=== PATIENT | male | born 1950 | race African-American/Black ===

== ENCOUNTER 2016-07-01 17:04 | Emergency (ER) | payer OTHER ==
[2016-07-01 18:11] LABS: #Basophils 0.1 thou/uL (0.0-0.2); #Eosinphils 0.3 thou/uL (0.0-0.7); #Lymphocytes 1.7 thou/uL (1.20-3.40); #Monocytes 0.7 thou/uL (0.11-0.59); #Neutrophils 5.5 thou/uL (1.40-6.50); %Basophils 1.2 % (0.0-1.0); %Eosinophils 3.8 % (0.0-10.0); %Lymphocytes 20.7 % (21.0-51.0); %Monocytes 8.8 % (0.0-10.0); Hematocrit 39.5 % (42.0-52.0); Mean Platelet Volume 6.9 fL (7.4-10.4); Red Blood Cell (RBC) Count 4.36 mill/uL (4.70-6.10); White Blood Cell (WBC) Count 8.4 thou/uL (4.8-10.8)
[2016-07-01 18:37] LABS: ALT (SGPT) 15 U/L (0-55); AST (SGOT) 12 U/L (5-34); Alkaline Phosphatase 133 U/L (40-150); Anion Gap 16 mmol/L (10-20); BUN (Urea Nitrogen) 9 mg/dL (8.4-25.7); Bilirubin, Total 0.3 mg/dL (0.2-1.2); Calc. Creatinine Clearance 0 mL/min (70-130); Calcium 8.9 mg/dL (7.8-10.44); Carbon Dioxide 23 mmol/L (23-31); Chloride 107 mmol/L (98-107); Estimated GFR-MDRD Greater than 90; Globulin 3.6 g/dL (2.4-3.5); Protein, Total 7.4 g/dL (5.8-8.1)
[2016-07-01] MEDS ORDERED: cefTRIAXone\\ROCEPHIN 1 GM VIAL ONE (21:24)
[2016-07-01] MEDS ORDERED: Sodium Chloride 0.9% 100 ML ONE ×2 (21:24)
--- NOTE | 2016-07-01 21:38 | ERRECORD ---
[facility] EMERGENCY RECORD ADMIN (17:19 [facility]) MERGE: Ambulance Wed Jul 01, 2016 17:04. HPI ABSCESS (21:49 JL) CHIEF COMPLAINT: Patient presents for evaluation of swelling, Patient presents for evaluation of pain, Patient presents for evaluation of drainage from wound, Patient presents for evaluation of Pt with sore on left cheek x1 week. Treated with Bactrim but worsening and extending up left cheek to left lower eyelid. Open today and draining. HISTORIAN: History provided by patient, History provided by patient's family, Additional history obtained from custodial. LOCATION: Symptoms are localized. TIME COURSE: Gradual onset of symptoms, Symptoms are worsening. ASSOCIATED WITH: No associated chills, Associated with drainage, No associated fever, Associated with proximal streaking, Associated with warmth. COMPLICATING FACTORS: Complicating factors for wound healing include:, patient with history of diabetes. EXACERBATED BY: Patient's condition exacerbated by nothing. RELIEVED BY: Patient's condition relieved by nothing. ROS (21:50 JL) CONSTITUTIONAL: Historian denies chills, denies fever. ENT: Historian denies rhinorrhea, denies sore throat. RESPIRATORY: Historian denies cough, denies shortness of breath. GI: Historian denies abdominal pain, denies nausea, denies vomiting. SKIN: Historian reports cellulitis, reports induration, reports rash. NEUROLOGIC: Historian denies headache. PAST MEDICAL HISTORY MEDICAL HISTORY: Notes: Hemiplegia, glaucoma, GERD, COPD,, Flu vaccine up to date, Tetanus immunization up to date, Pneumococcal vaccine up to date, Past medical history includes history of diabetes, Type II, Past medical history includes history of hyperlipidemia, Past medical history includes history of hypertension. 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 TRACH PLACED IN 2005. (17:14 IHAC) PSYCHIATRIC HISTORY: Notes: dementia, psychosis. (17:14 IHAC) SOCIAL HISTORY: Patient denies alcohol use, Patient has no smoking history, Patient denies alcohol use, Patient denies drug use, Patient has no smoking history. (17:14 IHAC) NOTES: Nursing records reviewed, Agree with nursing records. (21:53 JL) &a-1R&a+25V*p+0X*n7917H*c202B*c15G*c2P*p-0X&a-25V&a+1R Name: Berny Reynolds : 1950 M65 MedRec: [id number] AcctNum: [id number] Prepared: WedJul 01, 2016 22:34 by Interface Page 1 of 4 pMD [facility] EMERGENCY RECORD KNOWN ALLERGIES No Known Drug Allergies CURRENT MEDICATIONS Aspirin Low Dose: TABLET, DELAYED RELEASE (ENTERIC COATED) : Strength - 81 mg : ORAL Patient Dose: once a day. (17:14 BDON) Depakote: TABLET, DELAYED RELEASE (ENTERIC COATED) : Strength - 500 mg : ORAL Patient Dose: 1 1/2 tab(s) once a day.crush medications. (17:16 BDON) Dilantin Extended: CAPSULE : Strength - 100 mg : ORAL Patient Dose: 2 tab(s) once a day. (17:17 BDON) Lipitor: TABLET : Strength - 40 mg : ORAL Patient Dose: once a day. (17:17 BDON) multivitamin: TABLET : ORAL Patient Dose: once a day.crush. (17:18 BDON) Travatan Z: DROPS : Strength - 0.004 % : OPHTHALMIC Patient Dose: once a day (at bedtime). (17:20 BDON) Fleet Enema: ENEMA (ML) : Strength - 19 gram-7 gram/118 mL : RECTAL Patient Dose: once a day.as needed. (17:21 BDON) Bactrim DS: TABLET : Strength - 800 mg-160 mg : ORAL Patient Dose: 2 times a day.for 7 days. (17:21 BDON) Milk of Magnesia: SUSPENSION, ORAL (FINAL DOSE FORM) : Strength - 400 mg/5 mL : ORAL Patient Dose: once a day.as needed. (17:22 BDON) acetaminophen: TABLET : Strength - 325 mg : ORAL Patient Dose: 2 times a day.crushed as needed. (17:23 BDON) traMADol: TABLET : Strength - 50 mg : ORAL Patient Dose: 2 times a day.as needed. (17:23 BDON) Antacid: SUSPENSION, ORAL (FINAL DOSE FORM) : Strength - 200 mg-200 mg-20 mg/5 mL : ORAL Patient Dose: every 4 hours prn. (17:24 BDON) Benadryl: CAPSULE : Strength - 25 mg : ORAL Patient Dose: every 6 hours PRN. (17:27 BDON) HumuLIN R: CARTRIDGE (ML) : Strength - 100 unit/mL : INJECTION Patient Dose: Unknown.sliding scale. (17:29 BDON) Nitrostat: &a-1R&a+25V*p+0X*n7289T*c202B*c15G*c2P*p-0X&a-25V&a+1R Name: Berny Reynolds : 1950 M65 MedRec: [id number] AcctNum: [id number] Prepared: WedJul 01, 2016 22:34 by Interface Page 2 of 4 pMD [facility] EMERGENCY RECORD TABLET, SUBLINGUAL : Strength - 0.4 mg : SUBLINGUAL Patient Dose: Unknown. (17:30 BDON) Saline Nasal: AEROSOL, SPRAY (ML) : Strength - 0.65 % : NASAL Patient Dose: Unknown. (17:31 BDON) VITAL SIGNS VITAL SIGNS: BP: 147/87, Pulse: 85, Resp: 22, Temp: 99.3 (Oral), O2 sat: 96 on Room Air, Time: 07/01/2016 17:05. (17:05 IHAC) BP: 163/77, Pulse: 84, Resp: 20, Temp: 98.1 (Oral), O2 sat: 95 on Room Air, Time: 07/01/2016 21:15. (21:15 MBOS) PHYSICAL EXAM (21:51 JLOY) CONSTITUTIONAL: Vital signs reviewed, Patient appears non toxic. EYES: Eye exam included findings of, left eyelid edematous, Pupils equally round and reactive to light, Extraocular muscles intact, Conjunctiva normal. ENT: Pharynx exam normal, Uvula exam normal, Tonsil exam normal, Mouth exam normal, mucous membranes moist. NECK: Neck exam included findings of normal range of motion, Trachea midline, trach intact. RESPIRATORY CHEST: Respiratory exam included findings of no respiratory distress, Breath sounds clear, No wheezing, No rales, No rhonchi, Chest exam included findings of chest movement symmetrical. CARDIOVASCULAR: Cardiovascular exam included findings of heart rate regular rate and rhythm, Heart sounds normal. NEURO: [place] coma scale 15, Neuro exam findings include patient oriented to person, place and time, Speech normal. SKIN: Skin exam included findings of skin warm, dry, and normal in color, left face with open wound just over left nasolabial fold. TTP, base purulent, no active drainage. Edges red and swollen. Redeness and induration tracking up left cheek to lateral nose and left lower lid. MEDICATION ADMINISTRATION SUMMARY Drug Name: *vancomycin intravenous, Dose Ordered: 1 g, Route: IV Piggy Back, Status: Given, Time: 22:05 07/01/2016, Drug Name: cefTRIAXone injection, Dose Ordered: 1 g, Route: IV Piggy Back, Status: Given, Time: 21:30 07/01/2016, *Additional information available in notes, Detailed record available in Medication Service section. DOCTOR NOTES (21:48 [facility]) TEXT: Dr. Pruitt accepted the transfer to [facility]. PROBLEM LIST No recorded problems DIAGNOSIS (21:09 [facility]) &a-1R&a+25V*p+0X*w2427R*c202B*c15G*c2P*p-0X&a-25V&a+1R Name: Berny Reynolds : 1950 5 MedRec: [id number] AcctNum: [id number] Prepared: WedJul 01, 2016 22:34 by Interface Page 3 of 4 pMD [facility] EMERGENCY RECORD FINAL: PRIMARY: CELLULITIS UNSPECIFIED. PRESCRIPTION No recorded prescriptions DISPOSITION PATIENT: Disposition Type: Admit, Disposition: [facility]. (21:09 [facility]) Disposition Type: Transfer, Disposition: [facility]. (21:49 [facility]) Patient left the department. (22:28 [place]) Wyatt: RAMY=CALLI Shanks, Jane MENDEZ=Catina SolanoOY=MD Juan, Micheal PITTS=CALLI Nugent, Rudy WHITAKER=CALLI Sebastian, Cherry &a-1R&a+25V*p+0X*s7940H*c202B*c15G*c2P*p-0X&a-25V&a+1R Name: Berny Reynolds : 1950 M65 MedRec: [id number] AcctNum: [id number] Prepared: Wed Jul 01, 2016 22:34 by Interface Page 4 of 4 pMD MTDD
--- NOTE | 2016-07-01 21:42 | PICIS ---
[facility] EMERGENCY RECORD ADMIN MERGE: Ambulance WedJul 01, 2016 17:04. (17:19 IHAC) TRIAGE (WedJul 01, 2016 17:07 IHAC) PATIENT: NAME: Berny Reynolds, AGE: 65, GENDER: male, : [facility] 1950, TIME OF GREET: WedJul 01, 2016 17:04, PREFERRED LANGUAGE: Hungarian, ETHNICITY: Not or , ECODE BILLING MAP: [facility], SSN: [id number], Zip Code: [id number], KG WEIGHT: [phone], PHONE: , , , PERSON ID: [id number]. (WedJul 01, 2016 17:07 IHAC) COMPLAINT: FACIAL SWELLING. (WedJul 01, 2016 17:07 IHAC) ADMISSION: URGENCY: 3 Urgent, ADMISSION SOURCE: Retirement, TRANSPORT: AMBULANCE - [facility], BED: TRIAGE. (WedJul 01, 2016 17:07 IHAC) ASSESSMENT: Assessment: LEFT FACIAL ABCESS, Symptoms began X3 DAYS. (17:14 IHAC) IMMUNIZATIONS: Flu vaccine up to date. (17:14 IHAC) SIRS SCORING: Heart Rate 55-109 (0), Temp range 96.8-101.1 (0), respiratory rate 12-24 (0), Yes, Infection or Suspected Infection, FACE. (17:14 IHAC) SIRS NOTIFICATION: SPOUSE AT BEDSIDE. (17:14 IHAC) PROVIDERS: TRIAGE NURSE: Catina Solano. (WedJul 01, 2016 17:07 IHAC) VITAL SIGNS: BP 147/87, Pulse 85, Resp 22, Temp 99.3, (Oral), O2 Sat 96, on Room Air, Time 07/01/2016 17:05. (17:05 IHAC) KNOWN ALLERGIES No Known Drug Allergies CURRENT MEDICATIONS Aspirin Low Dose: TABLET, DELAYED RELEASE (ENTERIC COATED) : Strength - 81 mg : ORAL Patient Dose: once a day. (17:14 BDON) Depakote: TABLET, DELAYED RELEASE (ENTERIC COATED) : Strength - 500 mg : ORAL Patient Dose: 1 1/2 tab(s) once a day.crush medications. (17:16 BDON) Dilantin Extended: CAPSULE : Strength - 100 mg : ORAL Patient Dose: 2 tab(s) once a day. (17:17 BDON) Lipitor: TABLET : Strength - 40 mg : ORAL Patient Dose: once a day. (17:17 BDON) multivitamin: TABLET : ORAL Patient Dose: once a day.crush. (17:18 BDON) Travatan Z: DROPS : Strength - 0.004 % : OPHTHALMIC Patient Dose: once a day (at bedtime). (17:20 BDON) &a-1R&a+25V*p+0X*e3018Z*c202B*c15G*c2P*p-0X&a-25V&a+1R Name: Berny Reynolds : 1950 M65 MedRec: [id number] AcctNum: [id number] Prepared: WedJul 01, 2016 22:40 by Interface Page 1 of 10 pMD [facility] EMERGENCY RECORD [place] Enema: ENEMA (ML) : Strength - 19 gram-7 gram/118 mL : RECTAL Patient Dose: once a day.as needed. (17:21 BDON) Bactrim DS: TABLET : Strength - 800 mg-160 mg : ORAL Patient Dose: 2 times a day.for 7 days. (17:21 BDON) Milk of Magnesia: SUSPENSION, ORAL (FINAL DOSE FORM) : Strength - 400 mg/5 mL : ORAL Patient Dose: once a day.as needed. (17:22 BDON) acetaminophen: TABLET : Strength - 325 mg : ORAL Patient Dose: 2 times a day.crushed as needed. (17:23 BDON) traMADol: TABLET : Strength - 50 mg : ORAL Patient Dose: 2 times a day.as needed. (17:23 BDON) Antacid: SUSPENSION, ORAL (FINAL DOSE FORM) : Strength - 200 mg-200 mg-20 mg/5 mL : ORAL Patient Dose: every 4 hours prn. (17:24 BDON) Benadryl: CAPSULE : Strength - 25 mg : ORAL Patient Dose: every 6 hours PRN. (17:27 BDON) HumuLIN R: CARTRIDGE (ML) : Strength - 100 unit/mL : INJECTION Patient Dose: Unknown.sliding scale. (17:29 BDON) Nitrostat: TABLET, SUBLINGUAL : Strength - 0.4 mg : SUBLINGUAL Patient Dose: Unknown. (17:30 BDON) Saline Nasal: AEROSOL, SPRAY (ML) : Strength - 0.65 % : NASAL Patient Dose: Unknown. (17:31 BDON) VITAL SIGNS VITAL SIGNS: BP: 147/87, Pulse: 85, Resp: 22, Temp: 99.3 (Oral), O2 sat: 96 on Room Air, Time: 07/01/2016 17:05. (17:05 IHAC) BP: 163/77, Pulse: 84, Resp: 20, Temp: 98.1 (Oral), O2 sat: 95 on Room Air, Time: 07/01/2016 21:15. (21:15 MBOS) NURSING ASSESSMENT: FALL RISK (21:16 MBOS) FALL RISK: Sensory deficits (1), Impaired mobility (3), Neurologic diagnosis (3), Total score 7, Fall risk. NURSING ASSESSMENT: SKIN CONSTITUTIONAL: Complex assessment performed, Patient arrives, via [facility], History obtained from patient, Patient cooperative, Patient alert, Skin warm, Skin dry, Skin, flushed in color, Mucous membranes pink, Mucous membranes moist, Patient complains of lFACIAL ABCESS,EDEMA AND REDNESS, REDNESS AND EDEMA TO LEFT SIDE OF FACE WITH OPEN TIP &a-1R&a+25V*p+0X*d2619Z*c202B*c15G*c2P*p-0X&a-25V&a+1R Name: Berny Reynolds : 1950 M65 MedRec: [id number] AcctNum: [id number] Prepared: WedJul 01, 2016 22:40 by Interface Page 2 of 10 pMD [facility] EMERGENCY RECORD .5CM ROUND WHITE IN CNTR.. NO ACTIVE DRAINAGE NOTED OTHER THAN SCANT BLOOD. (17:21 IHAC) Oriented to person, place and time. (21:21 MBOS) PAIN: aching pain, Onset of pain X3 DAYS. (17:21 IHAC) SKIN: Skin assessment findings include skin warm, Skin dry, Skin normal in color, Inspection findings include redness, to LEFTSIDE OF FACE TO INCLUDE PERIORBITAL. DENIES ANY DIFF. VISION AT THIS TIME., Inspection findings include swelling, to LEFT SIDE OF FACE. (17:21 IHAC) Inspection findings include: No pressure ulcer to the shoulder, Inspection findings include no pressure ulcer to the elbow, Inspection findings include no pressure ulcers to the hip, Inspection findings include no pressure ulcer to the sacrum, Inspection findings include no pressure ulcer to the heel, Inspection findings include no pressure ulcer, Inspection findings include no pressure ulcer, Inspection findings include redness, to left cheek, left orbit, Inspection findings include signs of infection, to left cheek, left orbit, Inspection findings include swelling, to left cheek, left orbit. (21:21 MBOS) TUBES AND PORTS: Tracheostomy present, Size (Fr) PLACED IN 2005, Site well healed. (17:21 IHAC) SAFETY: Side rails up, Cart/Stretcher in lowest position, Family at bedside, Call light within reach, Hospital ID band on. (17:21 IHAC) Side rails up, Cart/Stretcher in lowest position, Family at bedside, Call light within reach, Hospital ID band on. (21:21 MBOS) ADVANCED DIRECTIVES (17:12 BDON) ADVANCED DIRECTIVE: DNR on chart. NURSING PROCEDURE: BEDSIDE SIRS TESTING (21:20 MBOS) SCORES: Heart Rate 55-109 (0), Temp range 96.8-101.1 (0), respiratory rate 12-24 (0), Latest WBC 3-14.9 (0), Mental Status altered: no (0). NURSING PROCEDURE: COMMUNICATIONS (17:53 BDON) COMMUNICATIONS: Notes: Dr. Das sent to ER for evaluation and R/O infection of left "beside of lip" wound. It has been there for a few days. Taking antiabiotic. [facility] called after patient arrival to ER by approximately 40 minutes. NURSING PROCEDURE: IV PATIENT IDENITIFIER: Patient actively involved in identification process. (18:39 BDON) Patient actively involved in identification process, Patient's identity verified by patient stating name, Patient's identity verified by &a-1R&a+25V*p+0X*s2303N*c202B*c15G*c2P*p-0X&a-25V&a+1R Name: Berny Reynolds : 1950 M65 MedRec: [id number] AcctNum: [id number] Prepared: WedJul 01, 2016 22:40 by Interface Page 3 of 10 [facility] EMERGENCY RECORD patient stating date, Patient's identity verified by hospital ID yvette. (19:25 MBOS) IV SITE 1: IV established, in two attempts, Unable to obtain IV access. (18:39 BDON) IV established, to the left external jugular, using an 18 gauge catheter, in six attempts, Saline lock established, Flushed with normal saline (mls): 10, Notes: started by Rudy Nugent RN. (19:25 MBOS) SAFETY: Side rails up, Cart/Stretcher in lowest position, Family at bedside, Call light within reach, Hospital ID band on. (19:25 MBOS) NURSING PROCEDURE: NURSE NOTES NURSES NOTES: Notes: UNABLE TO OBTAIN IV. ACCESS OR LAB BY THIS NURSE AND OTHER NURSE. LAB CALLED TO ASSIST WITH LAB DRAW. DILIA AT BEDSIDE. WILL REPORT TO MD. WELL. (17:55 IHAC) Notes: NOTIFIED . OF INABILITY TO ACCESS IV. REPORT ALSO GOVEN TO HARIS MCCURDY. (18:41 IHAC) Patient is improving, Patient in no apparent distress, Beverage given to patient. (20:48 MBOS) NURSING PROCEDURE: TRANSPORT TO TESTS (20:05 KHER) PATIENT IDENTIFIER: Patient actively involved in identification process. TRANSPORT TO TESTS: Transport indicated to facilitate diagnosis, Patient transported to CT scan, via cart, Accompanied by x-ray pharmacy technician infusion, Patient arrived in location at 2005, Patient departed location at 2024. FOLLOW-UP: After procedure, patient returned to emergency department. SAFETY: Side rails up, Cart/Stretcher in lowest position, Family at bedside, Call light within reach, Hospital ID band on. ORDER DETAILS Order Name: CBC with Differential, Status: Active, Time: 17:23 07/01/2016, User: HINA, - Ordered for: MD Martinez Joshua, - Entered by: MD Martinez Joshua - WedJul 01, 2016 17:23, - Quantity: 1, Order Name: Comprehensive Metabolic Panel, Status: Active, Time: 17:23 07/01/2016, User: HINA, - Ordered for: MD Martinez Joshua, - Entered by: MD Martinez Joshua - WedJul 01, 2016 17:23, - Quantity: 1, Order Name: CRP (Inflamatory), Status: Active, Time: 17:23 07/01/2016, User: HINA, - Ordered for: MD Martinez Joshua, - Entered by: MD Martinez Joshua - WedJul 01, 2016 17:23, - Quantity: 1, &a-1R&a+25V*p+0X*k9436Y*c202B*c15G*c2P*p-0X&a-25V&a+1R Name: Berny Reynolds : 1950 M65 MedRec: [id number] AcctNum: [id number] Prepared: WedJul 01, 2016 22:40 by Interface Page 4 of 10 [facility] EMERGENCY RECORD Order Name: CT Facial Bones W Con, Status: Active, Time: 19:24 07/01/2016, User: HINA, - Ordered for: MD Martinez Joshua, - Entered by: MD Martinez Joshua - WedJul 01, 2016 19:24, - Quantity: 1, Order Name: SALINE LOCK, Status: Done, Time: 19:25 07/01/2016, User: SHERMAN, - Ordered for: MD Martinez Joshua, - Entered by: MD Martinez Joshua - WedJul 01, 2016 17:23, - Quantity: 1. MEDICATION ADMINISTRATION SUMMARY Drug Name: *vancomycin intravenous, Dose Ordered: 1 g, Route: IV Piggy Back, Status: Given, Time: 22:05 07/01/2016, Drug Name: cefTRIAXone injection, Dose Ordered: 1 g, Route: IV Piggy Back, Status: Given, Time: 21:30 07/01/2016, *Additional information available in notes, Detailed record available in Medication Service section. MEDICATION SERVICE cefTRIAXone injection: Order: cefTRIAXone injection (ceftriaxone sodium) - Dose: 1 g : IV Piggy Back Ordered by: Micheal Martinez MD Entered by: Micheal Martinez MD WedJul 01, 2016 21:08 , Acknowledged by: Cherry Sebastian RN WedJul 01, 2016 21:22 Documented as given by: Cherry Sebastian RN WedJul 01, 2016 21:30 Patient, Medication, Dose, Route and Time verified prior to administration. IV SITE #1 IVPB or drip, initial infusion, IVPB mixed in: 100ml, Fluid: 0.9NS, via primary tubing, via pump tubing, on an IV pump, at 200 ml/hr, Awake and alert- acceptable, Catheter placement confirmed via flush prior to administration, IV site without signs or symptoms of infiltration during medication administration, No swelling during administration, No drainage during administration, IV flushed after administration, Correct patient, time, route, dose and medication confirmed prior to administration, Patient advised of actions and side-effects prior to administration, Allergies confirmed and medications reviewed prior to administration, Patient in position of comfort, Side rails up, Cart in lowest position, Family at bedside. : Follow Up : _IV SITE #1:_, Medication infusion discontinued, on WedJul 01, 2016 22:00, 30 minutes, ., Total amount infused: 100ml, IV Line flushed after administration, Advised not to ambulate without assistance, Patient in position of comfort, Side rails up, Cart in lowest position, Family at bedside. (22:10 MBOS) vancomycin intravenous: Order: vancomycin intravenous (vancomycin HCl) - Dose: 1 g : IV Piggy Back Notes: If not premixed, mix vial in 250mL NS or 250mL D5W. Ordered by: Micheal Martinez MD Entered by: Micheal Martinez MD WedJul 01, 2016 21:48 , &a-1R&a+25V*p+0X*e5380W*c202B*c15G*c2P*p-0X&a-25V&a+1R Name: Berny Reynolds : 1950 M65 MedRec: [id number] AcctNum: [id number] Prepared: WedJul 01, 2016 22:40 by Interface Page 5 of 10 pMD [facility] EMERGENCY RECORD Acknowledged by: Cherry Sebastian RN WedJul 01, 2016 21:53 Documented as given by: Cherry Sebastian RN WedJul 01, 2016 22:05 Patient, Medication, Dose, Route and Time verified prior to administration. IV SITE #1 IVPB or drip, subsequent infusion, IVPB mixed in: 250ml, Fluid: 0.9NS, via primary tubing, via pump tubing, on an IV pump, at 125 ml/hr, Awake and alert- acceptable, Catheter placement confirmed via flush prior to administration, IV site without signs or symptoms of infiltration during medication administration, No swelling during administration, No drainage during administration, IV flushed after administration, Correct patient, time, route, dose and medication confirmed prior to administration, Patient advised of actions and side-effects prior to administration, Allergies confirmed and medications reviewed prior to administration, Patient in position of comfort, Side rails up, Cart in lowest position, Family at bedside. : Follow Up : Response assessment performed, No signs or symptoms of allergic reaction noted, _IV SITE #1:_, Medication infusion continued upon transfer from emergency department, on WedJul 01, 2016 22:24, 20 minutes, ., Total amount infused: 25ml. (22:26 [facility]) HPI ABSCESS (21:49 [facility]) CHIEF COMPLAINT: Patient presents for evaluation of swelling, Patient presents for evaluation of pain, Patient presents for evaluation of drainage from wound, Patient presents for evaluation of Pt with sore on left cheek x1 week. Treated with Bactrim but worsening and extending up left cheek to left lower eyelid. Open today and draining. HISTORIAN: History provided by patient, History provided by patient's family, Additional history obtained from halfway. LOCATION: Symptoms are localized. TIME COURSE: Gradual onset of symptoms, Symptoms are worsening. ASSOCIATED WITH: No associated chills, Associated with drainage, No associated fever, Associated with proximal streaking, Associated with warmth. COMPLICATING FACTORS: Complicating factors for wound healing include:, patient with history of diabetes. EXACERBATED BY: Patient's condition exacerbated by nothing. RELIEVED BY: Patient's condition relieved by nothing. ROS (21:50 JL) CONSTITUTIONAL: Historian denies chills, denies fever. ENT: Historian denies rhinorrhea, denies sore throat. RESPIRATORY: Historian denies cough, denies shortness of breath. GI: Historian denies abdominal pain, denies nausea, denies vomiting. SKIN: Historian reports cellulitis, reports induration, reports rash. NEUROLOGIC: Historian denies headache. &a-1R&a+25V*p+0X*p2655X*c202B*c15G*c2P*p-0X&a-25V&a+1R Name: Berny Reynolds : 1950 M65 MedRec: [id number] AcctNum: [id number] Prepared: WedJul 01, 2016 22:40 by Interface Page 6 of 10 pMD [facility] EMERGENCY RECORD PAST MEDICAL HISTORY MEDICAL HISTORY: Notes: Hemiplegia, glaucoma, GERD, COPD,, Flu vaccine up to date, Tetanus immunization up to date, Pneumococcal vaccine up to date, Past medical history includes history of diabetes, Type II, Past medical history includes history of hyperlipidemia, Past medical history includes history of hypertension. 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 TRACH PLACED IN 2005. (17:14 IHAC) PSYCHIATRIC HISTORY: Notes: dementia, psychosis. (17:14 IHAC) SOCIAL HISTORY: Patient denies alcohol use, Patient has no smoking history, Patient denies alcohol use, Patient denies drug use, Patient has no smoking history. (17:14 IHAC) NOTES: Nursing records reviewed, Agree with nursing records. (21:53 JLOY) PHYSICAL EXAM (21:51 JLOY) CONSTITUTIONAL: Vital signs reviewed, Patient appears non toxic. EYES: Eye exam included findings of, left eyelid edematous, Pupils equally round and reactive to light, Extraocular muscles intact, Conjunctiva normal. ENT: Pharynx exam normal, Uvula exam normal, Tonsil exam normal, Mouth exam normal, mucous membranes moist. NECK: Neck exam included findings of normal range of motion, Trachea midline, trach intact. RESPIRATORY CHEST: Respiratory exam included findings of no respiratory distress, Breath sounds clear, No wheezing, No rales, No rhonchi, Chest exam included findings of chest movement symmetrical. CARDIOVASCULAR: Cardiovascular exam included findings of heart rate regular rate and rhythm, Heart sounds normal. NEURO: Rush coma scale 15, Neuro exam findings include patient oriented to person, place and time, Speech normal. SKIN: Skin exam included findings of skin warm, dry, and normal in color, left face with open wound just over left nasolabial fold. TTP, base purulent, no active drainage. Edges red and swollen. Redeness and induration tracking up left cheek to lateral nose and left lower lid. EVENTS TRANSFER: Triage to Emergency Triage. (WedJul 01, 2016 17:07 IHAC) Emergency Triage to Emergency Room -02. (17:23 JNOL) Removed from Emergency Emergency Room -02. (22:28 LEEW) DOCTOR NOTES (21:48 [facility]) TEXT: Dr. Pruitt accepted the transfer to [facility]. &a-1R&a+25V*p+0X*s9895I*c202B*c15G*c2P*p-0X&a-25V&a+1R Name: Berny Reynolds : 1950 M65 MedRec: [id number] AcctNum: [id number] Prepared: WedJul 01, 2016 22:40 by Interface Page 7 of 10 pMD [facility] EMERGENCY RECORD PROBLEM LIST No recorded problems DIAGNOSIS (21:09 [facility]) FINAL: PRIMARY: CELLULITIS UNSPECIFIED. DISPOSITION PATIENT: Disposition Type: Admit, Disposition: [facility]. (21:09 [facility]) Disposition Type: Transfer, Disposition: [facility]. (21:49 JL) Patient left the department. (22:28 LEEW) PRESCRIPTION No recorded prescriptions IMAGING DNR - ADVANCE DIRECTIVE: Image captured from scanner. (17:12 BDON) *MEMORANDUM OF TRANSFER: Image captured from scanner. (21:55 LEEW) TRANSFER CONSENT: Image captured from scanner. (21:55 LEEW) JAIL NOTES: Image captured from scanner. (21:59 LEEW) Page 2 added. Image captured from scanner. (22:00 LEEW) Page 3 added. Image captured from scanner. (22: LEEW) Page 4 added. Image captured from scanner. (22: LEEW) Page 5 added. Image captured from scanner. (22: LEEW) Page 6 added. Image captured from scanner. (22: LEEW) Page 7 added. Image captured from scanner. (22: LEEW) Page 8 added. Image captured from scanner. (22: LEEW) Page 9 added. Image captured from scanner. (22: LEEW) Page 10 added. Image captured from scanner. (22: LEEW) Page 11 added. Image captured from scanner. (22: LEEW) Page 12 added. Image captured from scanner. (22: LEEW) Page 13 added. Image captured from scanner. (22:) Page 14 added. Image captured from scanner. (22:) Page 15 added. Image captured from scanner. (22:) Page 16 added. Image captured from scanner. (22:) Page 17 added. Image captured from scanner. (22:) Page 18 added. Image captured from scanner. (22:02 ) TRANSFER RECORD FORM: Image captured from scanner. (22:02 ) *SUPPLY CHARGE SHEET: Image captured from scanner. (22:22 LEE) ADMIN DIGITAL SIGNATURE: MD Martinez Joshua. (21:09 [facility]) MD Martinez Joshua. (21:53 [facility]) CALLI Nugent Lee. (22:11 [facility]) CALLI Nugent, Rudy. (22:28 [facility]) RESULTS (19:06 [facility]) &a-1R&a+25V*p+0X*e0797H*c202B*c15G*c2P*p-0X&a-25V&a+1R Name: Berny Reynolds : 1950 M65 MedRec: [id number] AcctNum: [id number] Prepared: WedJul 01, 2016 22:40 by Interface Page 8 of 10 pMD [facility] EMERGENCY RECORD LABORATORY: Comprehensive Metabolic Panel Collection DT: WedJul 01, 2016 18:07, Sodium 142 mmol/L, Range (136-145), Potassium 4.4 mmol/L, Range (3.5-5.1), Chloride 107 mmol/L, Range (98-107), Carbon Dioxide 23 mmol/L, Range (23-31), Anion Gap 16 mmol/L, Range (10-20), BUN (Urea Nitrogen) 9 mg/dL, Range (8.4-25.7), Creatinine 0.87 mg/dL, Range (0.7-1.3), Estimated GFR-MDRD Greater than 90 , Reference Range for Estimated GFR: Greater than 90, mL/min/1.73 m2 NOTE: The MDRD equation has not been validated for use, with the elderly (over 70 years of age), women, patients with, serious comorbid condition or persons with extremes of body size, muscle, mass, or nutritional status. , *Glucose 147 - H mg/dL, Range (80-115), Calcium 8.9 mg/dL, Range (7.8-10.44), Bilirubin, Total 0.3 mg/dL, Range (0.2-1.2), Protein, Total 7.4 g/dL, Range (5.8-8.1), NOTE: Plasma values are generally 0.3 to 0.5 g/dL higher than serum values, due to the presence of fibrinogen. , Albumin 3.8 g/dL, Range (3.4-4.8), *Globulin 3.6 - H g/dL, Range (2.4-3.5), *Alb/Glob Ratio 1.1 - L g/dL, Range (1.2-2.2), Alkaline Phosphatase 133 U/L, Range (40-150), AST (SGOT) 12 U/L, Range (5-34), ALT (SGPT) 15 U/L, Range (0-55). CRP (Inflammatory) Collection DT: WedJul 01, 2016 18:07, *CRP (Inflammatory) 8.09 - H mg/dL, Range (= or < 0.5). CBC with Differential Collection DT: WedJul 01, 2016 18:07, White Blood Cell (WBC) Count 8.4 thou/uL, Range (4.8-10.8), *Red Blood Cell (RBC) Count 4.36 - L mill/uL, Range (4.70-6.10), *Hemoglobin 12.7 - L g/dL, Range (14.0-18.0), *Hematocrit 39.5 - L %, Range (42.0-52.0), Mean Corpuscular Volume 90.7 fl, Range (80.0-94.0), Mean Corpuscular Hemoglobin 29.2 pg, Range (27.0-31.0), Mean Corpuscular HGB CONC 32.2 g/dL, Range (32.0-36.0), RBC Distribution Width 11.7 %, Range (11.5-14.5), Platelet Count 255 thou/uL, Range (130-400), *Mean Platelet Volume 6.9 - L fL, Range (7.4-10.4), %Neutrophils 65.5 %, Range (42.0-75.0), *%Lymphocytes 20.7 - L %, Range (21.0-51.0), %Monocytes 8.8 %, Range (0.0-10.0), %Eosinophils 3.8 %, Range (0.0-10.0), *%Basophils 1.2 - H %, Range (0.0-1.0), #Neutrophils 5.5 thou/uL, Range (1.40-6.50), &a-1R&a+25V*p+0X*x3531P*c202B*c15G*c2P*p-0X&a-25V&a+1R Name: Berny Reynolds : 1950 M65 MedRec: [id number] AcctNum: [id number] Prepared: WedJul 01, 2016 22:40 by Interface Page 9 of 10 pMD [facility] EMERGENCY RECORD #Lymphocytes 1.7 thou/uL, Range (1.20-3.40), *#Monocytes 0.7 - H thou/uL, Range (0.11-0.59), #Eosinphils 0.3 thou/uL, Range (0.0-0.7), #Basophils 0.1 thou/uL, Range (0.0-0.2). Wyatt: RAMY=CALLI Shanks, Jane MENDEZ=Catina Solano=MD Juan, Micheal TOSCANO=CALLI Wood, Marivel NGUYEN=VINCE Denney Kayce LEEW=CALLI Nugent, Rudy WHITAKER=CALLI Sebastian, Cherry &a-1R&a+25V*p+0X*c0979C*c202B*c15G*c2P*p-0X&a-25V&a+1R Name: Berny Reynolds : 1950 M65 MedRec: [id number] AcctNum: [id number] Prepared: WedJul 01, 2016 22:40 by Interface Page 10 of 10 pMD MTDD
--- NOTE | 2016-07-01 21:44 | CT ---
CT FACE WITH CONTRAST HISTORY: Edema and redness to the left side of the face with an open tip. Evaluate for facial abs cess. COMPARISON: None. TECHNIQUE: Multiple contiguous axial images were obtained in a CT of the face with contrast. Sagi ttal and coronal reformats were performed. FINDINGS: There is left facial soft tissue swelling in the cheek and infraorbital region. There i s a small, hypodense region within the skin, without underlying abscess. This likely represents the tip seen in the area of redness. Mucus retention cysts are seen in the paranasal sinuses. M ultiple dental caries are seen. The globes and retrobulbar soft tissues are unremarkable. Encephalomacia is seen in the right tempo ral and parietal lobes. IMPRESSION Left fascial soft tissue swelling without an underlying focal abscess. POS: JESSY
[2016-07-01] MEDS ORDERED: Sodium Chloride 0.9% 250 ML 250 ML ONE (21:55)
== END 2016-07-01 22:24 | disposition short-term general hospital (02) ==
LOC: NAV ERS 17:04
DX: L03.211 Cellulitis of face (principal); I10 Essential (primary) hypertension; E11.9 Type 2 diabetes mellitus without complications; E78.5 Hyperlipidemia, unspecified; Z79.4 Long term (current) use of insulin; Z79.899 Other long term (current) drug therapy
CPT/HCPCS: 70487; 80053; 85025; 86140; 96365; 96367; J0696; J3370; J7050

== ENCOUNTER 2016-11-18 07:27 | Outpatient (CLI) | payer OTHER ==
[2016-11-18 09:36] LABS: Hemoglobin A1c 6.2 % (4.0-6.0)
[2016-11-18 09:40] LABS: ALT (SGPT) 15 U/L (8-55); AST (SGOT) 12 U/L (5-34); Albumin 3.7 g/dL (3.4-4.8); Alkaline Phosphatase 147 U/L (40-150); Bilirubin, Direct 0.2 mg/dL (0.1-0.3); Bilirubin, Total 0.3 mg/dL (0.2-1.2); Cardiac Risk 8.3 (Less than 4.5); Cholesterol 265 mg/dl (< 200 Desired); HDL Cholesterol 32 mg/dL (>60 Neg Risk); LDL Cholesterol, Calculated 206 mg/dL; Protein, Total 6.8 g/dL (5.8-8.1); Triglycerides 135 mg/dL (Less than 150)
== END 2016-11-18 07:28 | disposition home or self-care (01) ==
LOC: NAV LABSP 07:27
PROVIDERS: ATTEND Internal Medicine
DX: E11.9 Type 2 diabetes mellitus without complications (principal); R56.9 Unspecified convulsions
CPT/HCPCS: 36415; 80061; 80076; 83036

== ENCOUNTER 2016-11-25 07:10 | Outpatient (CLI) | payer OTHER ==
[2016-11-25 08:16] LABS: #Basophils 0.1 thou/uL (0.0-0.2); #Eosinphils 0.4 thou/uL (0.0-0.7); #Lymphocytes 1.9 thou/uL (1.20-3.40); #Monocytes 0.7 thou/uL (0.11-0.59); #Neutrophils 4.2 thou/uL (1.40-6.50); %Basophils 1.1 % (0.0-1.0); %Eosinophils 5.5 % (0.0-10.0); %Lymphocytes 26.4 % (21.0-51.0); %Monocytes 9.1 % (0.0-10.0); %Neutrophils 57.8 % (42.0-75.0); Hemoglobin 12.1 g/dL (14.0-18.0); Mean Corpuscular Hemoglobin 28.3 pg (27.0-31.0); Mean Corpuscular Volume 88.6 fl (80.0-94.0); Mean Platelet Volume 6.5 fL (7.4-10.4); Platelet Count 234 thou/uL (130-400); RBC Distribution Width 11.7 % (11.5-14.5); Red Blood Cell (RBC) Count 4.27 mill/uL (4.70-6.10); White Blood Cell (WBC) Count 7.2 thou/uL (4.8-10.8)
[2016-11-25 08:28] LABS: Anion Gap 13 mmol/L (10-20); BUN (Urea Nitrogen) 5 mg/dL (8.4-25.7); Calc. Creatinine Clearance 0 mL/min (70-130); Calcium 8.2 mg/dL (7.8-10.44); Carbon Dioxide 27 mmol/L (23-31); Chloride 105 mmol/L (98-107); Estimated GFR-MDRD Greater than 90; Glucose 153 mg/dL (80-115); Sodium 141 mmol/L (136-145)
== END 2016-11-25 07:11 | disposition home or self-care (01) ==
LOC: NAV LABSP 07:10
PROVIDERS: ATTEND Internal Medicine
DX: I67.9 Cerebrovascular disease, unspecified (principal); I10 Essential (primary) hypertension
CPT/HCPCS: 36415; 80048; 85025

== ENCOUNTER 2017-02-08 07:10 | Outpatient (CLI) | payer MEDICARE, OTHER ==
[2017-02-08 09:33] LABS: Hemoglobin A1c 8.2 % (4.0-6.0)
== END 2017-02-08 07:11 | disposition home or self-care (01) ==
LOC: NAV LABSP 07:10
PROVIDERS: ATTEND Internal Medicine
DX: E11.9 Type 2 diabetes mellitus without complications (principal); R56.9 Unspecified convulsions
CPT/HCPCS: 36415; 83036

== ENCOUNTER 2017-06-15 17:49 | Emergency (ER) | payer MEDICARE, MEDICAID ==
[2017-06-15] MEDS ORDERED: Sodium Chloride 0.9% 1,000 ML ONE (18:32)
[2017-06-15] MEDS ORDERED: Propofol 1,000 MG/100 ML VIAL IV ONE (18:37)
[2017-06-15 18:38] LABS: #Basophils 0.2 thou/uL (0.0-0.2); #Lymphocytes 3.1 thou/uL (1.20-3.40); #Monocytes 1.1 thou/uL (0.11-0.59); #Neutrophils 8.7 thou/uL (1.40-6.50); %Basophils 1.3 % (0.0-1.0); %Eosinophils 0.2 % (0.0-10.0); %Lymphocytes 23.7 % (21.0-51.0); %Monocytes 8.4 % (0.0-10.0); %Neutrophils 66.5 % (42.0-75.0); Hemoglobin 13.9 g/dL (14.0-18.0); Mean Corpuscular HGB CONC 33.6 g/dL (32.0-36.0); Mean Corpuscular Hemoglobin 29.4 pg (27.0-31.0); Mean Corpuscular Volume 87.6 fl (80.0-94.0); Mean Platelet Volume 8.1 fL (7.4-10.4); Platelet Count 187 thou/uL (130-400); RBC Distribution Width 11.9 % (11.5-14.5); Red Blood Cell (RBC) Count 4.72 mill/uL (4.70-6.10); White Blood Cell (WBC) Count 13.1 thou/uL (4.8-10.8)
[2017-06-15 18:53] LABS: ALT (SGPT) 21 U/L (8-55); AST (SGOT) 33 U/L (5-34); Albumin 3.9 g/dL (3.4-4.8); Alkaline Phosphatase 124 U/L (40-150); Anion Gap 24 mmol/L (10-20); BUN (Urea Nitrogen) 10 mg/dL (8.4-25.7); Bilirubin, Total 0.4 mg/dL (0.2-1.2); Calc. Creatinine Clearance 0 mL/min (70-130); Calcium 9.2 mg/dL (7.8-10.44); Carbon Dioxide 21 mmol/L (23-31); Chloride 99 mmol/L (98-107); Estimated GFR-MDRD 68; Globulin 4.1 g/dL (2.4-3.5); Glucose 387 mg/dL (80-115); Sodium 139 mmol/L (136-145)
[2017-06-15 19:00] LABS: CKMB 4.1 ng/mL (0-6.6)
[2017-06-15 19:14] LABS: Troponin I 0.448 ng/mL (< 0.028)
[2017-06-15 19:25] LABS: INR-International Normal Ratio 1.1; PTT 35.3 SEC (22.9-36.1); Prothrombin Time 14.3 SEC (12.0-14.7)
[2017-06-15 19:35] LABS: Bilirubin Negative (Negative); Blood, Urine Large (Negative); Clarity Slightly Cloudy (Clear); Glucose, Urine (Dipstick) 500 mg/dL (Negative); Leukocyte Negative (Negative); Nitrite Negative (Negative); Protein, Urine (Dipstick) > or equal to 300 mg/dL (Neg-Trace); Specific Gravity, Urine 1.025 (1.005-1.030); Urobilinogen 0.2 mg/dL (0.2-1.0); pH, Urine 5.5 (5.0-9.0)
[2017-06-15 19:46] LABS: Bacteria/HPF None Seen HPF (None Seen); Transitional Epithelial 0-3 HPF (0-3)
[2017-06-15] MEDS ORDERED: Sodium Chloride 0.9% 100 ML ONE (20:00)
[2017-06-15] MEDS ORDERED: cefTRIAXone\\ROCEPHIN 2 GM VIAL ONE (20:00)
--- NOTE | 2017-06-15 21:12 | RAD ---
PORTABLE CHEST 06/15/17 PROVIDED CLINICAL HISTORY: Dyspnea. FINDINGS: Comparison is made with the examination performed earlier same date. There has been readjustment of t he endotracheal tube, which is persistently somewhat distally located probably passed the lilo into the base of the right main bronchus. This could be retracted further. There has been improvement in aeration involving the left lung. Prominence of the pulmonary vasculature suggested. Patchy bibasilar air space disease persists. IMPRESSION: 1. ET positioning as above. 2. Bibasilar air space disease. Followup recommended. POS: [facility]
--- NOTE | 2017-06-15 21:48 | RAD ---
PORTABLE SUPINE CHEST 06/15/17 PROVIDED CLINICAL HISTORY: Dyspnea. FINDINGS: Comparison 05/21/16. There is near total opacification of the left hemithorax with shift of mediastinal contents leftwards . There is an endotracheal tube in place, the tip of which projects in the expected location of the r ight main bronchus. External defibrillator pad overlies the right hemithorax. The right hemithorax ap pears grossly clear given this limitation. Evaluation for pleural fluid and pneumothorax is limited g iven the supine nature of the study. IMPRESSION: 1. Right main stem bronchus intubation. 2. Near total opacification in the left hemithorax. 3. Findings communicated to the [facility], 6:41 p.m., 06/15/17. Code CR POS: [id number]
== END 2017-06-15 19:29 | disposition short-term general hospital (02) ==
LOC: NAV ERS 17:49
DX: J80 Acute respiratory distress syndrome (principal); Z93.0 Tracheostomy status; K21.9 Gastro-esophageal reflux disease without esophagitis; G81.90 Hemiplegia, unspecified affecting unspecified side; J44.9 Chronic obstructive pulmonary disease, unspecified; E11.39 Type 2 diabetes mellitus with other diabetic ophthalmic complication; H40.9 Unspecified glaucoma; E78.5 Hyperlipidemia, unspecified; I10 Essential (primary) hypertension; F03.90 Unspecified dementia, unspecified severity, without behavioral disturbance, psychotic disturbance, mood disturbance, and anxiety
CPT/HCPCS: 31500; 36415; 51702; 71010; 80053; 81003; 81015; 82553; 83605; 84484; 85025; 85610; 85730; 87086; 93005; 94002; 94640; 94760; 96365; 96374; 99292; J0696; J2704; J7050; J7620

== ENCOUNTER 2017-12-17 23:07 | Emergency (ER) | payer MEDICARE, OTHER | END 2017-12-17 23:57 | disposition short-term general hospital (02) | LOC: NAV ERS 23:07 | DX: Z43.0 Encounter for attention to tracheostomy (principal); K21.9 Gastro-esophageal reflux disease without esophagitis; J44.9 Chronic obstructive pulmonary disease, unspecified; E11.9 Type 2 diabetes mellitus without complications; E78.5 Hyperlipidemia, unspecified; F41.9 Anxiety disorder, unspecified; F32.9 Major depressive disorder, single episode, unspecified; Z79.899 Other long term (current) drug therapy; Z79.82 Long term (current) use of aspirin | CPT/HCPCS: 99285 ==